=== PATIENT | female | born 1945 ===

== ENCOUNTER 2020-09-28 11:03 | Day surgery (SDC) | payer OTHER ==
[~2020-09-28 11:03] MED LIST: ESTROGEN-METHY1 EAC2 PO; LEVO-T25 MCG PO; PROMETRIUM200 MG PO
== END 2020-09-28 21:00 | disposition home or self-care (01) ==
LOC: CIR.AMB 11:03
PROVIDERS: ATTEND Student in an Organized Health Care Education/Training Program
DX: N81.3 Complete uterovaginal prolapse (principal); Z20.828 Contact with and (suspected) exposure to other viral communicable diseases